=== PATIENT | female | born 1975 | race Caucasian/White ===

== ENCOUNTER 2020-03-17 00:17 | Emergency (ER) | payer OTHER ==
[~2020-03-17] VITALS: Ht 170.2 cm; Wt 95.2 kg
[2020-03-17 00:38] LABS: BASOPHILS ABSOLUTE AUTO 0.04 K/mm3 (0.00-0.23); BASOPHILS PERCENT AUTO 0 % (0-2); EOSINOPHILS PERCENT AUTO 1 % (0-6); Hematocrit 41.6 % (33.0-51.0); Hemoglobin 13.6 g/dL (11.5-16.0); IMMATURE GRAN ABSOLUTE AUTO 0.03 K/mm3 (0.00-0.10); IMMATURE GRAN PERCENT AUTO 0 % (0-1); LYMPHOCYTES ABSOLUTE AUTO 1.69 K/mm3 (0.84-5.20); LYMPHOCYTES PERCENT AUTO 18 % (21-46); MONOCYTES ABSOLUTE AUTO 0.37 K/mm3 (0.16-1.47); MONOCYTES PERCENT AUTO 4 % (4-13); Mean Corpuscular HGB 29.2 pg (26.0-34.0); Mean Corpuscular HGB Conc 32.7 g/dL (31.5-36.5); Mean Corpuscular Volume 89 fL (80-100); Mean Platelet Volume 10.3 fL (9.1-12.4); NEUTROPHILS ABSOLUTE AUTO 7.22 K/mm3 (1.96-9.15); NEUTROPHILS PERCENT AUTO 76 % (41-73); Platelet Count 239 K/mm3 (150-400); RDW Coefficient Variation 13.1 % (11.7-14.2); RDW Standard Deviation 43.1 fL (35.1-46.3); Red Blood Cell Count 4.66 M/mm3 (3.80-5.20); White Blood Cell Count 9.45 K/mm3 (4.00-11.30)
[2020-03-17 00:57] LABS: Alanine Aminotransfer (ALT/SGP 21 U/L (12-78); Albumin, Blood 3.6 g/dL (3.4-5.0); Alk Phos 77 U/L (50-136); Anion Gap 5 mmol/L (6-16); Aspartate Aminotrans (AST/SGOT 16 U/L (12-37); Bilirubin, Total 0.2 mg/dL (0.1-1.0); Blood Urea Nitrogen 11 mg/dL (8-24); Bun/Creatinine Ratio 13.5 (12.0-20.0); CO2, Blood 29 mmol/L (21-32); Calcium, Blood 8.9 mg/dL (8.5-10.1); Chloride, Blood 103 mmol/L (98-108); Creatinine, Blood 0.81 mg/dL (0.40-1.00); Globulin, Blood 3.7 g/dL (2.2-4.0); Glomerular Filtration Rate >60 (60-); Glucose, Blood 92 mg/dL (70-99); Potassium, Blood 3.6 mmol/L (3.5-5.5); Sodium, Blood 137 mmol/L (136-145); Total Protein, Blood 7.3 g/dL (6.4-8.2); Troponin I <0.015 ng/mL (0.000-0.040)
[2020-03-17 01:21] LABS: CPK Creatine Kinase 54 U/L (26-193)
== END 2020-03-17 03:20 | disposition home or self-care (01) ==
LOC: ER 00:17
PROVIDERS: Emergency Medicine
DX: R07.9 Chest pain, unspecified (principal); I25.2 Old myocardial infarction; I25.10 Atherosclerotic heart disease of native coronary artery without angina pectoris; F17.200 Nicotine dependence, unspecified, uncomplicated
CPT/HCPCS: 71045; 80053; 82550; 84484; 85025; 93005; 93010; 96374; 96375; 99285-25; J2270; J2405

== ENCOUNTER 2020-06-09 19:13 | Observation (INO) | payer OTHER ==
[~2020-06-09] VITALS: Ht 160 cm; Wt 89.4 kg
[2020-06-09 19:48] LABS: BASOPHILS ABSOLUTE AUTO 0.05 K/mm3 (0.00-0.23); BASOPHILS PERCENT AUTO 0 % (0-2); EOSINOPHILS ABSOLUTE AUTO 0.17 K/mm3 (0.00-0.68); EOSINOPHILS PERCENT AUTO 2 % (0-6); Hematocrit 43.9 % (33.0-51.0); Hemoglobin 13.9 g/dL (11.5-16.0); IMMATURE GRAN ABSOLUTE AUTO 0.02 K/mm3 (0.00-0.10); IMMATURE GRAN PERCENT AUTO 0 % (0-1); LYMPHOCYTES ABSOLUTE AUTO 2.12 K/mm3 (0.84-5.20); LYMPHOCYTES PERCENT AUTO 19 % (21-46); MONOCYTES ABSOLUTE AUTO 0.51 K/mm3 (0.16-1.47); MONOCYTES PERCENT AUTO 5 % (4-13); Mean Corpuscular HGB 28.5 pg (26.0-34.0); Mean Corpuscular HGB Conc 31.7 g/dL (31.5-36.5); Mean Corpuscular Volume 90 fL (80-100); Mean Platelet Volume 10.2 fL (9.1-12.4); NEUTROPHILS ABSOLUTE AUTO 8.33 K/mm3 (1.96-9.15); NEUTROPHILS PERCENT AUTO 74 % (41-73); Platelet Count 297 K/mm3 (150-400); RDW Coefficient Variation 13.3 % (11.7-14.2); RDW Standard Deviation 44.2 fL (35.1-46.3); Red Blood Cell Count 4.87 M/mm3 (3.80-5.20)
[2020-06-09 20:04] LABS: Alanine Aminotransfer (ALT/SGP 38 U/L (12-78); Albumin, Blood 3.8 g/dL (3.4-5.0); Alk Phos 81 U/L (50-136); Anion Gap 4 mmol/L (6-16); Aspartate Aminotrans (AST/SGOT 40 U/L (12-37); Bilirubin, Total 0.3 mg/dL (0.1-1.0); Blood Urea Nitrogen 12 mg/dL (8-24); Bun/Creatinine Ratio 12.4 (12.0-20.0); CO2, Blood 30 mmol/L (21-32); Calcium, Blood 8.6 mg/dL (8.5-10.1); Chloride, Blood 106 mmol/L (98-108); Creatinine, Blood 0.97 mg/dL (0.40-1.00); Globulin, Blood 3.8 g/dL (2.2-4.0); Glomerular Filtration Rate >60 (60-); Glucose, Blood 91 mg/dL (70-99); Potassium, Blood 3.1 mmol/L (3.5-5.5); Sodium, Blood 140 mmol/L (136-145); Total Protein, Blood 7.6 g/dL (6.4-8.2); Troponin I <0.015 ng/mL (0.000-0.040)
[2020-06-09] MEDS ORDERED: METO25ER PO (23:43)
[2020-06-09] MEDS ORDERED: LISI5 PO (23:44)
[2020-06-10] MEDS ORDERED: Aspir 8181 MG PO (01:14)
--- NOTE | 2020-06-10 02:16 | NUR ---
0140 REPORT RECEIVED FROM ANDREW CHAMBERS RN; PT NOTED HAVE THE FOLLOWING VITALS SIGNS: 0111 179/107 0136 185/98 0137 LATETALOL 10MG IVP GIVEN 0144 149/96 0150 157/92 PT FEELS FINE; DENIES CHEST PAIN OR DYSPNEA; PT ATE SANDWICH AND CHOCOLATE PUDDING AT BEDTIME; ALERT AND ORIENTED X 4.
--- NOTE | 2020-06-10 03:35 | NUR ---
SHIFT SUMMARY: 44 Y/O FEMALE RESTED COMFORTABLY THIS SHIFT; DENIES CHEST PAIN OR NAUSEA; HAPPY AND COOPERATIVE; TELEMETRY REFLECTS NSR PER JUVENCIO--TRANSMISSION TECHNICIAN; PT HAD EPISODE HYPERTENSION AT ADMISSION WITH LABETALOL 10MG IVP GIVEN WITH GOOD RESULTS (SEE PREVIOUS NSG NOTES); BED LOW POSITION WITH CALL LIGHT AT SIDE.
[2020-06-10 06:54] LABS: BASOPHILS ABSOLUTE AUTO 0.05 K/mm3 (0.00-0.23); BASOPHILS PERCENT AUTO 1 % (0-2); EOSINOPHILS ABSOLUTE AUTO 0.26 K/mm3 (0.00-0.68); EOSINOPHILS PERCENT AUTO 3 % (0-6); Hematocrit 38.8 % (33.0-51.0); Hemoglobin 12.2 g/dL (11.5-16.0); IMMATURE GRAN ABSOLUTE AUTO 0.01 K/mm3 (0.00-0.10); IMMATURE GRAN PERCENT AUTO 0 % (0-1); LYMPHOCYTES PERCENT AUTO 30 % (21-46); MONOCYTES ABSOLUTE AUTO 0.53 K/mm3 (0.16-1.47); MONOCYTES PERCENT AUTO 7 % (4-13); Mean Corpuscular HGB 28.8 pg (26.0-34.0); Mean Corpuscular HGB Conc 31.4 g/dL (31.5-36.5); Mean Corpuscular Volume 92 fL (80-100); Mean Platelet Volume 10.2 fL (9.1-12.4); NEUTROPHILS ABSOLUTE AUTO 4.86 K/mm3 (1.96-9.15); NEUTROPHILS PERCENT AUTO 60 % (41-73); Platelet Count 240 K/mm3 (150-400); RDW Coefficient Variation 13.7 % (11.7-14.2); RDW Standard Deviation 45.6 fL (35.1-46.3); Red Blood Cell Count 4.24 M/mm3 (3.80-5.20); White Blood Cell Count 8.11 K/mm3 (4.00-11.30)
[2020-06-10 07:15] LABS: Alanine Aminotransfer (ALT/SGP 28 U/L (12-78); Alk Phos 65 U/L (50-136); Anion Gap 1 mmol/L (6-16); Aspartate Aminotrans (AST/SGOT 17 U/L (12-37); Bilirubin, Total 0.2 mg/dL (0.1-1.0); Blood Urea Nitrogen 11 mg/dL (8-24); Bun/Creatinine Ratio 13.3 (12.0-20.0); CO2, Blood 30 mmol/L (21-32); CPK Creatine Kinase 79 U/L (26-193); Calcium, Blood 8.1 mg/dL (8.5-10.1); Chloride, Blood 113 mmol/L (98-108); Creatinine, Blood 0.82 mg/dL (0.40-1.00); Globulin, Blood 3.1 g/dL (2.2-4.0); Glomerular Filtration Rate >60 (60-); Glucose, Blood 113 mg/dL (70-99); Potassium, Blood 3.9 mmol/L (3.5-5.5); Sodium, Blood 144 mmol/L (136-145); Total Protein, Blood 6.1 g/dL (6.4-8.2); Troponin I 0.018 ng/mL (0.000-0.040)
--- NOTE | 2020-06-10 10:45 | NUR ---
TROPONIN DRAW AT [address] OF [address] ORDER.
[2020-06-10 11:18] LABS: CPK Creatine Kinase 74 U/L (26-193); Troponin I <0.015 ng/mL (0.000-0.040)
--- NOTE | 2020-06-10 15:31 | NUR ---
PT DISCHARGED VIA WC WITH . IV DC'D. PT GIVEN PACKET TO ESTABLISH PCP TO [facility] BY [facility] PROCESSOR THIS AM. PT STATED WILL FU ON SATURDAY SINCE SHE LIVES [place]LOSEBY. EDUCATED THE PT ABOUT THE IMPORTANCE OF TAKING BP MEDICATIONS. NURSE FAXED MEDICATION REFILL TO [facility]. PT EDUCATION PACKET PROVIDED.
== END 2020-06-10 15:20 | disposition home or self-care (01) ==
LOC: ER 19:13 → MEDS 19:14
PROVIDERS: Emergency Medicine; ADMIT Internal Medicine
DX: I16.0 Hypertensive urgency (principal); R07.89 Other chest pain; F17.218 Nicotine dependence, cigarettes, with other nicotine-induced disorders; R55 Syncope and collapse; I25.2 Old myocardial infarction; I10 Essential (primary) hypertension; I25.10 Atherosclerotic heart disease of native coronary artery without angina pectoris; Z79.899 Other long term (current) drug therapy; E87.6 Hypokalemia
CPT/HCPCS: 36415; 70450; 71046; 71260; 80053; 82550; 83605; 83880; 84484; 85025; 85379; 93005; 93010; A9270; A9270-GY; J1650; J7030; Q9967

== ENCOUNTER 2021-02-04 20:55 | Emergency (ER) | payer OTHER ==
[~2021-02-04] VITALS: Ht 160 cm; Wt 90.7 kg
[~2021-02-04 20:55] MED LIST: Aspir 8181 MG PO; LISI5 PO; METO25ER PO
[2021-02-04 21:29] LABS: BASOPHILS ABSOLUTE AUTO 0.06 K/mm3 (0.00-0.23); BASOPHILS PERCENT AUTO 1 % (0-2); EOSINOPHILS ABSOLUTE AUTO 0.28 K/mm3 (0.00-0.68); EOSINOPHILS PERCENT AUTO 3 % (0-6); Hematocrit 38.6 % (33.0-51.0); Hemoglobin 12.5 g/dL (11.5-16.0); IMMATURE GRAN ABSOLUTE AUTO 0.02 K/mm3 (0.00-0.10); IMMATURE GRAN PERCENT AUTO 0 % (0-1); LYMPHOCYTES PERCENT AUTO 25 % (21-46); MONOCYTES ABSOLUTE AUTO 0.44 K/mm3 (0.16-1.47); MONOCYTES PERCENT AUTO 5 % (4-13); Mean Corpuscular HGB 28.9 pg (26.0-34.0); Mean Corpuscular HGB Conc 32.4 g/dL (31.5-36.5); Mean Corpuscular Volume 89 fL (80-100); Mean Platelet Volume 10.1 fL (9.1-12.4); NEUTROPHILS ABSOLUTE AUTO 6.27 K/mm3 (1.96-9.15); NEUTROPHILS PERCENT AUTO 66 % (41-73); Platelet Count 301 K/mm3 (150-400); RDW Coefficient Variation 13.2 % (11.7-14.2); RDW Standard Deviation 43.6 fL (35.1-46.3); Red Blood Cell Count 4.33 M/mm3 (3.80-5.20); White Blood Cell Count 9.47 K/mm3 (4.00-11.30)
[2021-02-04 21:54] LABS: Alanine Aminotransfer (ALT/SGP 41 U/L (12-78); Albumin, Blood 3.5 g/dL (3.4-5.0); Alk Phos 83 U/L (50-136); Anion Gap 6 mmol/L (6-16); Aspartate Aminotrans (AST/SGOT 37 U/L (12-37); Bilirubin, Total 0.2 mg/dL (0.1-1.0); Blood Urea Nitrogen 19 mg/dL (8-24); Bun/Creatinine Ratio 26.2 (12.0-20.0); CO2, Blood 28 mmol/L (21-32); Calcium, Blood 9.2 mg/dL (8.5-10.1); Chloride, Blood 108 mmol/L (98-108); Creatinine, Blood 0.73 mg/dL (0.40-1.00); Free Thyroxine 0.79 ng/dL (0.70-1.60); Globulin, Blood 3.6 g/dL (2.2-4.0); Glomerular Filtration Rate >60 (60-); Glucose, Blood 102 mg/dL (70-99); Potassium, Blood 3.1 mmol/L (3.5-5.5); Sodium, Blood 142 mmol/L (136-145); Total Protein, Blood 7.1 g/dL (6.4-8.2); Troponin I <0.015 ng/mL (0.000-0.040)
== END 2021-02-04 23:31 | disposition home or self-care (01) ==
LOC: ER 20:55
PROVIDERS: Emergency Medicine
DX: R00.2 Palpitations (principal); F17.210 Nicotine dependence, cigarettes, uncomplicated; Z79.899 Other long term (current) drug therapy; Z79.82 Long term (current) use of aspirin
CPT/HCPCS: 71046; 80053; 83690; 84439; 84443; 84484; 85025; 93005; 93010; 99285-25

== ENCOUNTER → 2022-11-21 | Outpatient (CLI) | payer OTHER ==
[2022-11-23 12:13] LABS: CHLAMYDIA BY NAA Negative (Negative); GONOCOCCUS BY NAA Negative (Negative); TRICH VAG BY NAA Positive (Negative)
== END | disposition home or self-care (01) ==
LOC: LAB SHORT 16:50 → LAB 16:50
PROVIDERS: Registered Nurse Community Health
DX: Z20.2 Contact with and (suspected) exposure to infections with a predominantly sexual mode of transmission (principal)
CPT/HCPCS: 87491; 87591; 87661

== ENCOUNTER 2023-05-23 09:01 | Emergency (ER) | payer OTHER ==
[~2023-05-23] VITALS: Ht 160 cm; Wt 99.8 kg
[2023-05-23 09:54] VITALS: BP 174/103
[2023-05-23] MEDS ORDERED: Norco 5-325 Ta1 EACH PO (10:50)
[2023-05-23] MEDS ORDERED: CRUTCH2 XX (11:01)
== END 2023-05-23 11:30 | disposition home or self-care (01) ==
LOC: ER 09:01
DX: S82.62XA Displaced fracture of lateral malleolus of left fibula, initial encounter for closed fracture (principal); X50.1XXA Overexertion from prolonged static or awkward postures, initial encounter; I25.2 Old myocardial infarction; F17.210 Nicotine dependence, cigarettes, uncomplicated
CPT/HCPCS: 29515; 73610; 99283-25; A9270

== ENCOUNTER 2025-05-02 21:39 | Emergency (ER) | payer SELFPAY ==
[~2025-05-02] VITALS: Ht 160 cm; Wt 108.9 kg
[~2025-05-02 21:39] MED LIST changes: +AMLODIPINE BESYL5 MG PO; +CRUTCH2 XX; +Norco 5-325 Ta1 EACH PO; +OLMESARTAN MEDO20 MG PO
[2025-05-02 22:03] VITALS: BP 170/124
== END 2025-05-02 22:08 | disposition home or self-care (01) ==
LOC: ER 21:39
DX: R07.9 Chest pain, unspecified (principal); R06.02 Shortness of breath; R53.1 Weakness; Z53.21 Procedure and treatment not carried out due to patient leaving prior to being seen by health care provider
CPT/HCPCS: 93005; 93010

== ENCOUNTER 2025-05-23 10:16 | Emergency (ER) | payer OTHER | END 2025-05-23 13:25 | disposition home or self-care (01) | LOC: ER 10:16 | DX: S52.602A Unspecified fracture of lower end of left ulna, initial encounter for closed fracture (principal); S81.011A Laceration without foreign body, right knee, initial encounter; R07.89 Other chest pain; G89.11 Acute pain due to trauma; I10 Essential (primary) hypertension; I25.2 Old myocardial infarction; F17.210 Nicotine dependence, cigarettes, uncomplicated; V43.52XA Car driver injured in collision with other type car in traffic accident, initial encounter ==

== ENCOUNTER 2025-06-09 11:13 | Day surgery (SDC) | payer OTHER ==
[2025-06-09] VITALS (9 sets, daily range): BP systolic 149–189; BP diastolic 89–99
[~2025-06-09] VITALS: Ht 160 cm; Wt 113.7 kg
[~2025-06-09 11:13] MED LIST changes: +Robaxin750 MG PO
[2025-06-09] MEDS ORDERED: CeFAZolin Sodium 3,000 MG in NS 100 ML IV SCH (11:30)
[2025-06-09] MEDS ORDERED: Metoclopramide HCl 5MG / ML 2ML Vial IV PRN (13:05)
[2025-06-09] MEDS ORDERED: Citric Acid/Sodium Citrate 30 ML BTL PO ONE (13:05)
[2025-06-09] MEDS ORDERED: Ondansetron HCl 2 MG / ML 2ML Vial IV PRN (13:05)
[2025-06-09] MEDS ORDERED: Albuterol 2.5 MG/3 ML VIAL INH PRN (13:10)
[2025-06-09] MEDS ORDERED: Albuterol 2.5 MG/3 ML VIAL INH ONE (13:10)
[2025-06-09] MEDS ORDERED: Ipratropium Bromide INH 0.02% 0.5 mg/2.5ML Vial INH ONE (13:10)
[2025-06-09] MEDS ORDERED: FentaNYL Citrate 50 MCG/ML 2 ML Injection IV PRN ×2 (13:10)
[2025-06-09] MEDS ORDERED: Dexamethasone Sod Phos 10 MG/ML 1ML VIAL ONE (13:41)
[2025-06-09] MEDS ORDERED: Midazolam HCl 1MG / ML 2ML Vial ONE (13:41)
[2025-06-09] MEDS ORDERED: FentaNYL Citrate 50 MCG/ML 2 ML Injection ONE (13:41)
[2025-06-09] MEDS ORDERED: Midazolam HCl 1MG / ML 2ML Vial IV ONE (14:00)
[2025-06-09] MEDS ORDERED: Labetalol HCL 5 MG/ML 4ML Injection (Single Dose) ONE (14:22)
--- NOTE | 2025-06-09 16:41 | NUR ---
Patient up to Ambulate independently. Gait steady. Discharge instructions reviewed with patient. Patient verbalizes understanding. Copy given to patient to take home. Discharged via wheelchair to private car for ride home WITH SPOUSE. PATIENT DENIES ANY PAIN NAUSEA, CIR CHECKS GOOG. UNABLE TO MMOVE AFFECTED LIMB SECONDARY TO NERVE BLOCK.
== END 2025-06-09 23:00 | disposition home or self-care (01) ==
LOC: ORSCMMR 11:13 → ORD 12:00 → ORSCMMR 12:30
PROVIDERS: Orthopaedic Surgery
PROC: 0PSL0ZZ Reposition Left Ulna, Open Approach (ICD-10-PCS; principal; 2025-06-09 12:30)
DX: S52.602A Unspecified fracture of lower end of left ulna, initial encounter for closed fracture (principal); I10 Essential (primary) hypertension; I25.2 Old myocardial infarction; F17.210 Nicotine dependence, cigarettes, uncomplicated; E66.01 Morbid (severe) obesity due to excess calories; Z68.41 Body mass index [BMI] 40.0-44.9, adult
CPT/HCPCS: A9270; J0690; J1100; J2250; J2704; J3010; J7120